=== PATIENT | male | born 1975 | race Native Hawaiian/Other Pacific Islander ===

== ENCOUNTER 2020-01-04 21:03 | Emergency (ER) | payer OTHER ==
--- NOTE | 2020-01-04 21:48 | ED Physician Documentation ---
PD HPI LOWER EXT INJURY - Stated complaint Stated Complaint: L LEG PX - Chief complaint Chief Complaint: Ext Problem - History obtained from History obtained from: Patient, Family - History of Present Illness PD HPI LOW EXT INJURY LOCATION: Left, Toe (Great toe) Type of injury: Fall Where injury occurred: Home Timing - onset: How many hours ago (1) Timing - duration: Hours (1) Timing - details: Abrupt onset Pain level max: 5 Pain level now: 2 Improved by: Rest, Ice Worsened by: Moving, Palpating Associated symptoms: No: Weakness, Numbness, Tingling, Swelling, Discolored Similar symptoms before: Has not had sx before Recently seen: Not recently seen Review of Systems Neurologic: denies: Head injury PD PAST MEDICAL HISTORY - Past Medical History Past Medical History: No - Past Surgical History Past Surgical History: No - Allergies Allergies/Adverse Reactions: Allergies Allergy/AdvReac Type Severity Reaction Status Date / Time No Known Drug Allergies Allergy Verified 01/04/20 21:11 - Social History Does the pt smoke?: No Smoking Status: Never smoker PD ED PE NORMAL - Vitals Vital signs reviewed: Yes - General General: Alert and oriented X 3, No acute distress - Derm Derm: Warm and dry - Extremities Extremities: Other (TTP over the distal L great toe. NVI. no deformity. ) - Neuro Neuro: Alert and oriented X 3 Results - Vitals Vitals: Vital Signs - 24 hr 01/04/20 01/04/20 21:09 22:35 Temperature 37.4 C 37.5 C Heart Rate 84 81 Respiratory 17 12 Rate Blood Pressure 139/93 H 128/87 H O2 Saturation 99 97 Oxygen O2 Source Room air - Rads (name of study) L foot xray Radiology: Prelim report reviewed, EMP read contemporaneously, See rad report (Fractured base of the first distal phalanx, with intra-articular extension. ) PD MEDICAL DECISION MAKING - ED course Complexity details: reviewed results, re-evaluated patient, considered differential, d/w patient ED course: Patient with a left great toe fracture. Discussed the case with orthopedics, Dr. Preciado. Placed in a postoperative shoe and phillip taped to the second toe. Patient counseled regarding signs and symptoms for which I believe and urgent re-evaluation would be necessary. Patient with good understanding of and agreement to plan and is comfortable going home at this time This document was made in part using voice recognition software. While efforts are made to proofread this document, sound alike and grammatical errors may occur. Departure - Departure Disposition: 01 Home, Self Care Clinical Impression: Fractured great toe Qualifiers: Encounter type: initial encounter Fracture type: closed Phalanx: distal Fracture alignment: displaced Laterality: left Qualified Code(s): S92.422A - Displaced fracture of distal phalanx of left great toe, initial encounter for closed fracture Condition: Good Instructions: ED Fx Foot Follow-Up: [facility] [Provider Group] - Within 1 week Comments: Keep the post operative shoe on and follow up with your doctor for further care. Return if you worsen. Discharge Date/Time: 01/04/20 22:37
--- NOTE | 2020-01-04 22:15 | XRAY Report ---
Reason: fall, toe pain Procedure Date: 01/04/2020 Accession Number: [id number] / [id number] Procedure: XR - Toe(s) LT CPT Code: Final Report FULL RESULT: EXAM: LEFT TOE RADIOGRAPHY EXAM DATE: 01/04/2020 09:58 PM. CLINICAL HISTORY: Fall, toe pain. COMPARISON: None. TECHNIQUE: 3 views. FINDINGS: Bones: Oblique fracture through the base of the first distal phalanx, with intra-articular extension. Minimal cortical offset. No other fractures. Joints: Normal. No subluxations. Soft Tissues: Soft tissue swelling of the first digit. IMPRESSION: Fractured base of the first distal phalanx, with intra-articular extension. [facility]
[2020-01-04 22:36] VITALS: BP 128/87
== END 2020-01-04 22:37 | disposition home or self-care (01) ==
LOC: ED 21:03
DX: S92.422A Displaced fracture of distal phalanx of left great toe, initial encounter for closed fracture (principal); W19.XXXA Unspecified fall, initial encounter; Y93.6A Activity, physical games generally associated with school recess, summer camp and children; Y92.009 Unspecified place in unspecified non-institutional (private) residence as the place of occurrence of the external cause
CPT/HCPCS: 73660; 99283